=== PATIENT | male | born 1975 | race Caucasian/White ===

== ENCOUNTER → 2017-07-25 | Day surgery (SDC) | payer BC ==
[~2017-07-25] MED LIST: BUPIVACAINE HCL 0.5 % INJ/PF 30 ML SDV ONE; METHYLPREDNISOLONE ACETATE INJ 40 MG/1 ML ML ONE
--- NOTE | 2017-07-26 08:47 | RADIOLOGY REPORT (SQ) ---
EXAM DESCRIPTION: INJECT/ASPIR HIP/SHLDR/KNEE; FLUORO/NEEDLE PLACEMENT COMPLETED DATE/TIME: 07/25/2017 3:20 pm REASON FOR STUDY: PAIN IN RIGHT HIP (M25.551) M25.551 PAIN IN RIGHT HIP COMPARISON: None. FLUOROSCOPY TIME: 9 seconds 2 digital radiographic images saved to PACS. LIMITATIONS: None. PROCEDURE: SITE OF INJECTION: Right hip joint LOCALIZING CONTRAST TYPE AND DOSE: 1 mL Isovue 300 was injected to confirm intra-articular needle kimberlee cement MEDICATION TYPE AND DOSE: 80 mg of Depo-Medrol, 5 mL of 0.5% bupivacaine Using local anesthesia and sterile technique with fluoroscopic guidance, a 22 gauge spinal needle was advanced into the joint. Iodinated contrast was injected to verify intraarticular placement. This w as followed by therapeutic injection of the indicated medications. The needle was removed. There we re no immediate complications. Preprocedure pain level: 5/10. Postprocedure pain level: 0/10. IMPRESSION: THERAPEUTIC INTRA-ARTICULAR INJECTION OF THE RIGHT HIP JOINT ABOVE. COMMENT: Patient medication list reviewed: Yes- Quality ID# [id number]:Eligible professional attests to doc umenting in the medical record they obtained, updated, or reviewed the patient's current medications. . Quality ID [id number]: Final reports for procedures using fluoroscopy that document radiation exposure silvino aide, or exposure time and number of fluorographic images (if radiation exposure indices are not avail able) TECHNICAL DOCUMENTATION: JOB ID: [id number] [employer]- All Rights Reserved Reading location - IP/workstation name: [email or web address]
== END ==
LOC: RAD 14:19
PROVIDERS: ATTEND Orthopaedic Surgery
PROC: 3E0U33Z Introduction of Anti-inflammatory into Joints, Percutaneous Approach (ICD-10-PCS; principal; 2017-07-25)
DX: M25.551 Pain in right hip (principal)
CPT/HCPCS: 20610; 77002; J3490; J1020

== ENCOUNTER 2019-07-05 17:44 | Emergency (ER) | payer OTHER, BC ==
--- NOTE | 2019-07-05 18:26 | ER Document Report ---
ED Medical Screen (RME) - General Chief Complaint: Chest Pain Stated Complaint: CHEST PAIN Time Seen by Provider: 07/05/19 18:16 Primary Care Provider: ADAMARIS BRANTLEY MD [Primary Care Provider] - Follow up as needed Mode of Arrival: Ambulatory Information source: Patient Notes: 44-year-old male presents emergency department with complaints of midsternal to the left side chest pain with lightheadedness. Reports he felt lightheaded yesterday. Reports he felt off today with chest pain midsternal. He reports he took the trash up the hill and became short of breath. He normally does not become short of breath. Complains of feeling diaphoretic. Patient reports recent shoulder injury. He is taking ibuprofen and gabapentin for that pain. Patient is very healthy works out. [facility]. Reports his father of diabetes and heart attack in his 40s. I have greeted and performed a rapid initial assessment of this patient. A comprehensive ED assessment and evaluation of the patient, analysis of test results and completion of the medical decision making process will be conducted by additional ED providers. TRAVEL OUTSIDE OF THE [place] IN LAST 30 DAYS: No - Related Data Allergies/Adverse Reactions: erythromycin base Allergy (Verified 07/05/19 18:24) Physical Exam - Vital signs Vitals: Temp Pulse Resp BP Pulse Ox 98.0 F 70 18 152/93 H 94 07/05/19 17:56 07/05/19 17:56 07/05/19 17:56 07/05/19 17:56 07/05/19 17:56 Course - Vital Signs Vital signs: Temp Pulse Resp BP Pulse Ox 98.0 F 70 18 152/93 H 94 07/05/19 17:56 07/05/19 17:56 07/05/19 17:56 07/05/19 17:56 07/05/19 17:56 Doctor's Discharge - Discharge Referrals: ADAMARIS BRANTLEY MD [Primary Care Provider] - Follow up as needed
[2019-07-05] MEDS ORDERED: ASPIRIN 81 MG TABLET, CHEWABLE PO ONE (18:55)
--- NOTE | 2019-07-05 19:17 | RADIOLOGY REPORT (SQ) ---
EXAM DESCRIPTION: CHEST 2 VIEWS COMPLETED DATE/TIME: 07/05/2019 7:04 pm REASON FOR STUDY: chest pain COMPARISON: None. NUMBER OF VIEWS: Two view. TECHNIQUE: Frontal and lateral radiographic views of the chest acquired. LIMITATIONS: None. FINDINGS: LUNGS AND PLEURA: Peribronchial cuffing and interstitial changes. No consolidation, effus ion, or pneumothorax. MEDIASTINUM AND HILAR STRUCTURES: No masses. No contour abnormalities. HEART AND VASCULAR STRUCTURES: Heart normal in size and contour. No evidence for failure. BONES: No acute findings. HARDWARE: None in the chest. OTHER: No other significant finding. IMPRESSION: REACTIVE AIRWAY DISEASE VERSUS VIRAL SYNDROME. NO CONSOLIDATION. TECHNICAL DOCUMENTATION: JOB ID: [id number] [place]-[id number] 2010 [employer])- All Rights Reserved Reading location - IP/workstation name: [email or web address]
[2019-07-05 19:44] LABS: ABSOLUTE EOSINOPHILS # (AUTO) 0.1 10^3/uL (0.0-0.6); ABSOLUTE LYMPHOCYTES (AUTO) 1.6 10^3/uL (0.5-4.7); ABSOLUTE MONOCYTES (AUTO) 0.5 10^3/uL (0.1-1.4); ABSOLUTE NEUT (AUTO) 2.5 10^3/uL (1.7-8.2); BASOPHILS % (AUTO) 0.4 % (0-2); EOSINOPHILS % (AUTO) 1.5 % (0-6); HEMATOCRIT 40.3 % (37.9-51.0); HEMOGLOBIN 14.4 g/dL (13.5-17.0); MEAN CORPUSCULAR HEMOGLOBIN 30.7 pg (27.0-33.4); MEAN CORPUSCULAR HGB CONC 35.7 g/dL (32.0-36.0); MEAN CORPUSCULAR VOLUME 86 fl (80-97); MONOCYTES % (AUTO) 10.3 % (3-13); PLATELET COUNT 151 10^3/uL (150-450); RED BLOOD COUNT 4.67 10^6/uL (4.35-5.55); RED CELL DISTRIBUTION WIDTH 12.8 % (11.5-14.0); SEGMENTED NEUTROPHILS % (AUTO) 53.8 % (42-78); TOTAL CELLS COUNTED % (AUTO) 100 %; WHITE BLOOD COUNT 4.6 10^3/uL (4.0-10.5)
[2019-07-05 19:51] LABS: APPEARANCE,URINE CLEAR; BILIRUBIN,URINE NEGATIVE (NEGATIVE); COLOR,URINE YELLOW; GLUCOSE, URINE NEGATIVE (NEGATIVE); KETONES,URINE NEGATIVE (NEGATIVE); LEUKOCYTE ESTERASE,URINE NEGATIVE (NEGATIVE); NITRITE,URINE NEGATIVE (NEGATIVE); PROTEIN,URINE NEGATIVE (NEGATIVE); URINE SPECIFIC GRAVITY 1.011
[2019-07-05 20:22] LABS: ALBUMIN 4.4 g/dL (3.5-5.0); ALKALINE PHOSPHATASE 56 U/L (38-126); ANION GAP 10 (5-19); ASPARTATE AMINO TRANSFERASE 43 U/L (17-59); BILIRUBIN,DIRECT 0.3 mg/dL (0.0-0.4); BILIRUBIN,TOTAL 0.8 mg/dL (0.2-1.3); BLOOD UREA NITROGEN 19 mg/dL (7-20); CALCIUM 9.6 mg/dL (8.4-10.2); CARBON DIOXIDE 28 mmol/L (22-30); CHLORIDE 102 mmol/L (98-107); CREATINE KINASE 255 U/L (55-170); GLUCOSE 107 mg/dL (75-110); POTASSIUM 3.8 mmol/L (3.6-5.0); TOTAL PROTEIN 7.7 g/dL (6.3-8.2)
--- NOTE | 2019-07-05 21:17 | ER Document Report ---
Entered by EZIO FLORES SCRIBE 07/05/192046 Acting as scribe for:RENETTA MEYER IV, MD ED General - General Chief Complaint: Chest Pain Stated Complaint: CHEST PAIN Time Seen by Provider: 07/05/19 18:16 Primary Care Provider: ADAMARIS BRANTLEY MD [ACTIVE STAFF] - Follow up as needed Mode of Arrival: Ambulatory Information source: Patient Notes: This 44 year old male patient presents to the ED today with complaints of left- sided chest pain that started yesterday. Patient states that he felt short of breath with increased coughing while he was walking up a hill to take out the trash. Patient states that after returning to his home, he began to prepare his lunch when he felt lightheaded and dizzy, so he decided to take a nap. Patient states that it felt like his original chest pain "slowly expanded" and that he became diaphoretic. Patient also reports nausea, polydipsia, concentrated urine, and headache, but denies vomiting. Patient reports that he has a recent left shoulder injury and that he is taking Gabapentin and Robaxin for it. Patient notes that he did receive a flu shot and that he had sinus issues in which he was prescribed [facility]1 [facility]. TRAVEL OUTSIDE OF THE [place] IN LAST 30 DAYS: No - Related Data Allergies/Adverse Reactions: erythromycin base Allergy (Verified 07/05/19 18:24) Home Medications: Methocarbimol. Calcium. Gabapentin. Meloxicam. Trazodone. Albuterol. Flonase Past Medical History - General Information source: Patient - Social History Smoking Status: Never Smoker Cigarette use (# per day): No Chew tobacco use (# tins/day): No Smoking Education Provided: No Frequency of alcohol use: None Drug Abuse: None Family History: Reviewed & Not Pertinent, CAD - Father age 40 d/t [place], DM - Father Patient has suicidal ideation: No Patient has homicidal ideation: No Review of Systems - Review of Systems Constitutional: See HPI, Diaphoresis EENT: See HPI, Other - Polydipsia Cardiovascular: See HPI, Chest pain, Dizziness, Lightheaded Respiratory: See HPI, Cough, Short of breath Gastrointestinal: See HPI, Nausea. denies: Vomiting Genitourinary: See HPI, Other - Concentrated urine Male Genitourinary: No symptoms reported Musculoskeletal: No symptoms reported Skin: No symptoms reported Hematologic/Lymphatic: No symptoms reported Neurological/Psychological: See HPI, Headaches -: Yes All other systems reviewed and negative Physical Exam - Vital signs Vitals: Temp Pulse Resp BP Pulse Ox 98.0 F 70 18 152/93 H 94 07/05/19 17:56 07/05/19 17:56 07/05/19 17:56 07/05/19 17:56 07/05/19 17:56 - General General appearance: Alert - HEENT Head: Normocephalic, Atraumatic Eyes: Normal Pupils: PERRL - Respiratory Respiratory status: No respiratory distress Chest status: Nontender Breath sounds: Normal Chest palpation: Normal - Cardiovascular Rhythm: Regular Heart sounds: Normal auscultation Murmur: No Friction rub: No Gallop: None auscultated - Abdominal Inspection: Normal Distension: No distension Bowel sounds: Normal Tenderness: Nontender - Abdomen soft Organomegaly: No organomegaly - Back Back: Normal, Nontender - Extremities General upper extremity: Normal inspection General lower extremity: Normal inspection - Neurological Neuro grossly intact: Yes - Psychological Associated symptoms: Normal affect, Normal mood - Skin Skin Temperature: Warm Skin Moisture: Dry Skin Color: Normal Course - Re-evaluation Re-evalutation: 07/05/19 21:17 Differential diagnosis: Pneumonia, influenza, parainfluenza virus, reactive airway disease, bronchitis. Possibility of ACS and aortic dissection as well as PE also considered. However given the patient's lack of risk factors for coronary artery disease, normal chest x-ray silhouette and lack of back pain or other symptoms to suggest acute dissection and a heart rate that is not tachycardic as well as O2 saturations in the 90s these etiologies seem much less likely. HEART Score: History see HPI ECG nonspecific t wave change Age <46 Risk Factors 1 Troponin 0 Total: 2 If HEART score is = 3 AND both tronponin measurments are normal, the 30 day risk of a major adverse cardiac event (all-cause mortality, myocardia infarction or need for coronary revscularization) is < 1% (Sensitivity 100%, NPV 100%). Chest pain in a patient without evidence of cardiac or other serious etiology on workup today. I discussed with patient that, based on their age, risk factors and emergency department testing today, the likelihood that their symptoms are related to a heart attack is very low (estimated risk of heart attack or over the next 30 days of less than 1%). The patient demonstrates decision making capacity and has verbalized an understanding of these risks to me. Based on this, the patient has chosen to follow-up as an outpatient. Usual chest pain return precautions reviewed. The patient states understanding and agreement with this plan. 07/05/19 21:22 07/05/19 22:20 07/05/19 23:12 Results of ED MSE discussed with patient and patient's . All questions were answered prior to discharge. Emergency signs and symptoms, reasons to return to the emergency department discussed with patient and patient's . - Vital Signs Vital signs: Temp Pulse Resp BP Pulse Ox 97.8 F 70 18 128/68 H 93 07/05/19 22:46 07/05/19 17:56 07/05/19 22:00 07/05/19 22:46 07/05/19 22:00 - Laboratory Result Diagrams: 07/05/19 19:00 07/05/19 19:00 Laboratory results interpreted by me: 07/05/19 07/05/19 19:00 19:00 ALT 56 H Creatine Kinase 255 H Urine Urobilinogen 4.0 H - Diagnostic Test Radiology reviewed: Reports reviewed - EKG Interpretation by Me Additional EKG results interpreted by me: 07/05/19 21:20 EKG obtained on 07/05/2019 at 1749 hrs. was interpreted by this MD. Findings: Sinus rhythm, rate 72, normal axis, P waves proceed QRS complexes, QRS complexes appear narrow, there are no obvious patterns of ST segment elevation or depression to suggest acute myocardial ischemia or infarction. Impression: Sinus rhythm with nonspecific ST segments. 07/05/19 22:31 Repeat EKG obtained on 07/05/2019 at 2224 hrs. was interpreted by this MD. Findings sinus rhythm, rate 57, normal axis, P waves proceed QRS complexes, QRS complexes appear narrow, there are no obvious visible patterns of ST elevation or depression to suggest acute myocardial ischemia or infarction. This EKG appears unchanged from the initial EKG obtained at 1749 hrs. Impression sinus bradycardia with nonspecific ST segments. Discharge - Discharge Clinical Impression: Acute nonspecific chest pain with low risk of coronary artery disease, Acute dyspnea Condition: Good Disposition: HOME, SELF-CARE Instructions: Chest Pain of Unclear Cause ([facility]) Additional Instructions: Return to the Emergency Department without delay if any worse. HOME CARE INSTRUCTIONS & INFORMATION: Thank you for choosing us for your medical needs. We hope you're satisfied with the care you received. After you leave, you must properly care for your problem and, at the same time, observe its progress. Any condition can change. Some illnesses can change rapidly over hours or days. If your condition worsens, return to the Emergency Department or see your physician promptly. ABOUT YOUR X-RAYS AND EKG'S: If you had an EKG or X-rays taken, they have been read by the Emergency Physician. The X-rays and EKG's will also be read by a Radiologist or Marine Propulsion Technician within 24 hours. If discrepancies are noted, you will be notified by telephone. Please be certain the ED has a correct telephone number & address where you can be reached. Also, realize that some fractures or abnormalities do not show up on initial X-rays. If your symptoms continue, see your physician. ABOUT YOUR LABORATORY TEST: If you had laboratory tests, the results have been reviewed by the Emergency Physician. Some test results (for example cultures) may not be available for several days. You will be contacted if any test result shows you need additional treatment. Please be certain the ED has a correct telephone number and address where you can be reached. ABOUT YOUR MEDICATIONS: You will receive instructions on how to take your medicine on the prescription label you receive. Additional information may be provided by the Pharmacy. If you have questions afterwards, call the ED for clarification or further instructions. Some prescribed medications may cause drowsiness. Do not perform tasks such as driving a car or operating machinery without consulting your Pharmacist. If you feel you need a refill of pain medication, your condition will need re-evaluation. Please do not call for a refill of any medication. ABOUT YOUR SIGNATURE: Signature of this document acknowledges to followin. Understanding that you received emergency treatment and that you may be released before al medical problems are known or treated. Please be certain the ED has a correct phone number & address where you can be reached. 2. Acknowledgement that you will arrange for follow-up care as recommended. 3. Authorization for the Emergency Physician to provide information to your follow-up Physician in order to maximize your care. AT ANY TIME, IF YOUR SYMPTOMS CHANGE SIGNIFICANTLY OR WORSEN OR YOU DEVELOP NEW SYMPTOMS, RETURN TO THE EMERGENCY DEPARTMENT IMMEDIATELY FOR RE-EVALUATION. OUR GOAL IS TO PROVIDE EXCELLENT MEDICAL CARE! WE HOPE THAT WE HAVE MET YOUR EXPECTATIONS DURING YOUR EMERGENCY DEPARTMENT VISIT AND THAT YOU FEEL YOU HAVE RECEIVED EXCELLENT CARE! Dyspnea, Nonspecific You were evaluated for shortness of breath, or dyspnea. Dyspnea has many causes, and some are more serious than others. Sometimes it's impossible to diagnose the cause of dyspnea with the tests that are available on an emergency basis. Based on our evaluation today, you do not need hospitalization now. We found no evidence of pneumonia, collapsed lung, blood clots in the lung, tumors, or heart failure. Causes of non-specific dyspnea can include asthma or bronchospasm, hyperventilation, emotional distress, heart disease, emphysema, fibrosis of the lung, and stiffness of the chest wall. In healthy individuals with a single episode, it's sometimes reasonable to do nothing but wait to see if the problem occurs again. Additional tests used to evaluate dyspnea can include cardiac stress testing, echocardiography, pulmonary function testing, CAT scan of the chest, bronchoscopy or pulmonary biopsy. Return if shortness of breath persists or worsens, or if you develop chest pain, fever, cough, confusion, or fainting. Reactive Airway Disease This means that your bronchial tubes constrict (narrow) or secrete extra mucous as a reaction to something that irritates them. The airway's reaction can cause shortness of breath, wheezing, or coughing. With reactive airway disease, your lungs can react to respiratory infections, allergic reactions, or inhaled dust, smoke, chemicals, or even cold air. Asthma is one type of reactive airway disease. Emergency treatment of bronchospasm may include adrenaline shots or bronchodilator aerosol. If we used these medicines to treat you, you may feel lightheaded and have a rapid pulse for an hour or two. Rest and get plenty of fluids. At home, we'll treat you with a bronchodilator inhaler. Antibiotics and corticosteroids may be required for some patients. Until you recover, avoid chemical fumes, dusts, pollens, and exercising in very cold or dry air. If you smoke, stop now!! If you develop a fever, increased wheezing, chest pain, or severe shortness of breath, you should contact your doctor immediately. Viral Syndrome Viruses not only cause "colds," but can cause many different symptoms including generalized aching, fever, headache, cough, diarrhea, nausea, vomiting, and fatigue. The treatment, for the most part, is simply relief of symptoms. This means that antibiotics are usually not given. Rest, fluids, pain medications and, occasionally, medication for the specific symptoms that are most bothersome will be prescribed. Use good handwashing to avoid passing the virus to others. Shared toys should be cleaned with disinfectant. Clean the toilets, sinks, and counter surfaces in bathrooms. Launder clothing in hot water. Contact the physician if you develop any new or unusual symptoms such as severe headache, stiff neck, high fever, chest pain, productive cough, or shortness of breath. You should be rechecked if you don't see marked improvement within seven to 10 days. Referrals: ADAMARIS BRANTLEY MD [ACTIVE STAFF] - Follow up as needed I personally performed the services described in the documentation, reviewed and edited the documentation which was dictated to the scribe in my presence, and it accurately records my words and actions.
--- NOTE | 2019-07-05 21:29 | EKG REPORT ---
SEVERITY:- ABNORMAL ECG - SINUS RHYTHM BORDERLINE INFERIOR Q WAVES NONSPECIFIC T ABNORMALITIES, INFERIOR LEADS : Confirmed by: Jeff Quiroz MD 05-Jul-2019 21:28:47
[2019-07-05 21:57] LABS: A TYPE INFLUENZA AG NEGATIVE (NEGATIVE); B INFLUENZA AG NEGATIVE (NEGATIVE)
[2019-07-05 22:47] VITALS: BP 128/68
--- NOTE | 2019-07-06 06:23 | EKG REPORT ---
SEVERITY:- BORDERLINE ECG - SINUS RHYTHM BORDERLINE INFERIOR Q WAVES : Confirmed by: Jeff Quiroz MD 06-Jul-2019 06:22:41
== END 2019-07-05 22:46 | disposition home or self-care (01) ==
LOC: ER 17:44
DX: R07.9 Chest pain, unspecified (principal); R06.02 Shortness of breath; R05 Cough; R42 Dizziness and giddiness; R61 Generalized hyperhidrosis; R11.0 Nausea; R51 Headache; R63.1 Polydipsia; S49.92XA Unspecified injury of left shoulder and upper arm, initial encounter; X58.XXXA Exposure to other specified factors, initial encounter; Z79.899 Other long term (current) drug therapy; Z79.1 Long term (current) use of non-steroidal anti-inflammatories (NSAID); Z88.1 Allergy status to other antibiotic agents; Z82.49 Family history of ischemic heart disease and other diseases of the circulatory system
CPT/HCPCS: 36415; 71046; 80053; 81001; 82550; 84484; 85025; 87804; 93005; 93010; 99285

== ENCOUNTER 2020-01-26 13:15 | Emergency (ER) | payer OTHER, BC ==
[2020-01-26] MEDS ORDERED: KETOROLAC TROMETHAMINE 60 MG/2 ML SDV IM ONE (14:01)
[2020-01-26] MEDS ORDERED: ONDANSETRON 4 MG TAB.RAPDIS PO ONE (14:01)
--- NOTE | 2020-01-26 14:04 | ER Document Report ---
ED Medical Screen (RME) - General Chief Complaint: Flank Pain Stated Complaint: FLANK PAIN Time Seen by Provider: 01/26/20 13:53 Primary Care Provider: ORESTES BENITES MD [Primary Care Provider] - Follow up as needed TRAVEL OUTSIDE OF THE [place] IN LAST 30 DAYS: No - HPI Notes: 01/26/20 14:02 44-year-old male to the emergency department with complaints of right flank pain that began this morning with associated dysuria. He states he woke up this morning had a little bit of discomfort with urinating and then went back to bed. He states he got up again had again the dysuria and a little bit of flank pain. He states that the pain radiates also down into his leg and slightly into his scrotum. He states he went to urgent care he told him that his urinalysis looked fine put him on some Pyridium. He is and he asked his she had had any urinary tract infections lately and she said no. Denies any concern for STD. He admits to some slight nausea but denies any vomiting. He states he is continued not to feel well so 1 of his coworkers suggested he come to the emergency department for evaluation for kidney stone. He is never had a kidney stone in the past. He denies any other complaints. My RME - Related Data Allergies/Adverse Reactions: erythromycin base Allergy (Verified 01/26/20 13:53) Physical Exam - Vital signs Vitals: Temp Pulse Resp BP Pulse Ox 97.5 F 67 18 146/88 H 95 01/26/20 13:23 01/26/20 13:23 01/26/20 13:23 01/26/20 13:23 01/26/20 13:23 Course - Vital Signs Vital signs: Temp Pulse Resp BP Pulse Ox 97.5 F 67 18 146/88 H 95 01/26/20 13:23 01/26/20 13:23 01/26/20 13:23 01/26/20 13:23 01/26/20 13:23 Doctor's Discharge - Discharge Referrals: ORESTES BENITES MD [Primary Care Provider] - Follow up as needed
[2020-01-26 14:52] LABS: ABSOLUTE LYMPHOCYTES (AUTO) 1.4 10^3/uL (0.5-4.7); ABSOLUTE MONOCYTES (AUTO) 0.3 10^3/uL (0.1-1.4); ABSOLUTE NEUT (AUTO) 3.3 10^3/uL (1.7-8.2); BASOPHILS % (AUTO) 0.4 % (0-2); EOSINOPHILS % (AUTO) 0.9 % (0-6); HEMATOCRIT 42.7 % (37.9-51.0); HEMOGLOBIN 14.9 g/dL (13.5-17.0); LYMPHOCYTES % (AUTO) 28.1 % (13-45); MEAN CORPUSCULAR HGB CONC 34.8 g/dL (32.0-36.0); MEAN CORPUSCULAR VOLUME 86 fl (80-97); MONOCYTES % (AUTO) 6.4 % (3-13); PLATELET COUNT 149 10^3/uL (150-450); RED BLOOD COUNT 4.96 10^6/uL (4.35-5.55); RED CELL DISTRIBUTION WIDTH 13.3 % (11.5-14.0); SEGMENTED NEUTROPHILS % (AUTO) 64.2 % (42-78); TOTAL CELLS COUNTED % (AUTO) 100 %; WHITE BLOOD COUNT 5.1 10^3/uL (4.0-10.5)
--- NOTE | 2020-01-26 14:58 | RADIOLOGY REPORT (SQ) ---
EXAM DESCRIPTION: CT ABD/PELVIS NO ORAL OR IV IMAGES COMPLETED DATE/TIME: 01/26/2020 2:43 pm REASON FOR STUDY: flank pain, dysuria, eval kidney stone COMPARISON: None. TECHNIQUE: CT scan of the abdomen and pelvis performed without intravenous or oral contrast. Images reviewed with lung, soft tissue, and bone windows. Reconstructed coronal and sagittal MPR images revi ewed. All images stored on PACS. All CT scanners at this facility use dose modulation, iterative reconstruction, and/or weight based d osing when appropriate to reduce radiation dose to as low as reasonably achievable (ALARA). [facility]: Dose Right [facility]: CareDose [facility]: Dose Right [facility]: Teradose 4D [facility]: [employer] RADIATION DOSE: mGy. LIMITATIONS: None. FINDINGS: LOWER CHEST: No significant findings. No nodules or infiltrates. NON-CONTRASTED LIVER, SPLEEN, ADRENALS: Evaluation limited by lack of IV contrast. No identified sign ificant masses. PANCREAS: No masses. No peripancreatic inflammatory changes. GALLBLADDER: Decompressed. No identified stones by CT criteria. No inflammatory changes to suggest c holecystitis. RIGHT KIDNEY AND URETER: No suspicious masses. Assessment limited by lack of IV contrast. No signif icant calcifications. No hydronephrosis or hydroureter. LEFT KIDNEY AND URETER: No suspicious masses. Assessment limited by lack of IV contrast. No signifi cant calcifications. No hydronephrosis or hydroureter. AORTA AND RETROPERITONEUM: No aneurysm. No retroperitoneal masses or adenopathy. BOWEL AND PERITONEAL CAVITY: No obvious masses or inflammatory changes. No free fluid. APPENDIX: Normal. PELVIS, BLADDER, AND ABDOMINAL WALL:No abnormal masses. No free fluid. Bladder normal. BONES: Degenerative changes are seen of the hips and spine. Incidental note is made of T12 and sacra l enostosis ease. There is incomplete sacral is a lyons of the L5 element with a right-sided Bertolot ti segment demonstrating sclerotic margins suggesting pseudoarthrosis. OTHER: No other significant finding. IMPRESSION: No evidence of urolithiasis or obstructive uropathy. Incidental finding of transitional lumbosacral anatomy with a right-sided Bertolotti segment may be symptomatic and related to patient' s presenting symptoms. COMMENT: Quality ID # [id number]: Final reports with documentation of one or more dose reduction techniques (e.g., Automated exposure control, adjustment of the mA and/or kV according to patient size, use of iterative reconstruction technique) TECHNICAL DOCUMENTATION: JOB ID: [id number] 2010 [employer]- All Rights Reserved Reading location - IP/workstation name: [email or web address]
[2020-01-26 15:08] LABS: ALBUMIN 4.7 g/dL (3.5-5.0); ALKALINE PHOSPHATASE 46 U/L (38-126); ANION GAP 9 (5-19); ASPARTATE AMINO TRANSFERASE 43 U/L (17-59); BILIRUBIN,DIRECT 0.2 mg/dL (0.0-0.4); BILIRUBIN,TOTAL 1.3 mg/dL (0.2-1.3); BLOOD UREA NITROGEN 20 mg/dL (7-20); CALCIUM 10.1 mg/dL (8.4-10.2); CARBON DIOXIDE 29 mmol/L (22-30); CHLORIDE 101 mmol/L (98-107); GLUCOSE 95 mg/dL (75-110); POTASSIUM 4.4 mmol/L (3.6-5.0); TOTAL PROTEIN 7.6 g/dL (6.3-8.2)
[2020-01-26 16:07] LABS: APPEARANCE,URINE CLEAR; BILIRUBIN,URINE NEGATIVE (NEGATIVE); COLOR,URINE AMBER; GLUCOSE, URINE NEGATIVE (NEGATIVE); KETONES,URINE NEGATIVE (NEGATIVE); LEUKOCYTE ESTERASE,URINE NEGATIVE (NEGATIVE); NITRITE,URINE POSITIVE (NEGATIVE); PROTEIN,URINE NEGATIVE (NEGATIVE); URINE SPECIFIC GRAVITY 1.011
[2020-01-26 17:49] LABS: CHLAM PCR NOT DETECTED (NOT DETECT)
--- NOTE | 2020-01-26 18:33 | ER Document Report ---
ED General - General Chief Complaint: Flank Pain Stated Complaint: FLANK PAIN Time Seen by Provider: 01/26/20 13:53 Primary Care Provider: ORESTES BENITES MD [NO LOCAL MD] - Follow up in 3-5 days TRAVEL OUTSIDE OF THE [place] IN LAST 30 DAYS: No - HPI Notes: 44-year-old male to the emergency department with complaints of dysuria that began this morning. He states he awoke in the middle the night and went to urinate and felt some discomfort. He states that he then went back to bed but then got up several times with dysuria. He states that the pain also started to radiate into his right flank and into his right testicle as well as down the leg. He states he went to urgent care thinking that he might have a urinary tract infection but they told him his results were negative. He states he went to work and continue to still feel poorly. So after speaking with some [facility] gues they urged him to come to the emergency department to evaluate for possible kidney stone. He denies any blood in his urine. He denies any fevers or chills. Is not had any vomiting. Admits to some slight nausea. He states that he is and he asked his she has had any urinary tract symptoms and she would said no. He is never had anything like this before. - Related Data Allergies/Adverse Reactions: erythromycin base Allergy (Verified 01/26/20 13:53) Past Medical History - General Information source: Patient - Social History Smoking Status: Never Smoker Chew tobacco use (# tins/day): No Frequency of alcohol use: Occasional Drug Abuse: None Family History: Reviewed & Not Pertinent, CAD - Father age 40 d/t [place], DM - Father Patient has homicidal ideation: No Review of Systems - Review of Systems Constitutional: denies: Chills, Fever EENT: No symptoms reported Cardiovascular: denies: Chest pain, Palpitations, Dyspnea, Syncope Respiratory: denies: Cough, Short of breath Gastrointestinal: Nausea. denies: Abdominal pain, Diarrhea, Vomiting Genitourinary: Burning, Dysuria, Frequency, Flank pain Male Genitourinary: Testicular pain Musculoskeletal: No symptoms reported Skin: No symptoms reported Hematologic/Lymphatic: No symptoms reported Neurological/Psychological: No symptoms reported -: Yes All other systems reviewed and negative Physical Exam - Vital signs Vitals: Temp Pulse Resp BP Pulse Ox 97.5 F 67 18 146/88 H 95 01/26/20 13:23 01/26/20 13:23 01/26/20 13:23 01/26/20 13:23 01/26/20 13:23 Interpretation: Normal - General General appearance: Appears well, Alert In distress: None - HEENT Head: Normocephalic, Atraumatic Eyes: Normal Pupils: PERRL - Respiratory Respiratory status: No respiratory distress Chest status: Nontender Breath sounds: Normal Chest palpation: Normal - Cardiovascular Rhythm: Regular Heart sounds: Normal auscultation Murmur: No - Abdominal Inspection: Normal Distension: No distension Bowel sounds: Normal Tenderness: No: Tender, McBurney's point, Diggs's sign, Guarding, Rebound Organomegaly: No organomegaly Notes: There is some mild right flank tenderness not particularly in the CVA region without rebound or guarding. Negative McBurney's point. - Back Back: Normal, Nontender - Extremities General upper extremity: Normal inspection, Nontender, Normal color, Normal ROM, Normal temperature General lower extremity: Normal inspection, Nontender, Normal color, Normal ROM, Normal temperature, Normal weight bearing. No: Kaushik's sign - Neurological Neuro grossly intact: Yes Cognition: Normal Orientation: AAOx4 Fillmore Coma Scale Eye Opening: Spontaneous Bridget Coma Scale Verbal: Oriented Bridget Coma Scale Motor: Obeys Commands Fillmore Coma Scale Total: 15 Speech: Normal Motor strength normal: LUE, RUE, LLE, RLE Sensory: Normal - Psychological Associated symptoms: Normal affect, Normal mood - Skin Skin Temperature: Warm Skin Moisture: Dry Skin Color: Normal Course - Re-evaluation Re-evalutation: Impression: UTI with dysuria. Patient is positive for nitrates in urine which makes me concerned for urinary tract infection. CT with no hydronephrosis, kidney stone. Testicular ultrasound with hydrocele but no other findings. Updated patient about his findings and will start on antibiotics. He is to follow-up with his primary care in 1 week and encouraged to return if any worsening symptoms. - Vital Signs Vital signs: Temp Pulse Resp BP Pulse Ox 97.8 F 74 18 134/76 H 99 01/26/20 19:12 01/26/20 19:12 01/26/20 19:12 01/26/20 19:12 01/26/20 19:12 - Laboratory Result Diagrams: 01/26/20 14:28 01/26/20 14:28 Laboratory results interpreted by me: 01/26/20 01/26/20 01/26/20 13:17 14:28 14:28 Plt Count 149 L ALT 65 H Urine Nitrite POSITIVE H Urine Urobilinogen 4.0 H - Diagnostic Test Radiology reviewed: Image reviewed, Reports reviewed Discharge - Discharge Clinical Impression: Flank pain, Dysuria UTI (urinary tract infection) Qualifiers: Urinary tract infection type: acute cystitis Hematuria presence: without hematuria Qualified Code(s): N30.00 - Acute cystitis without hematuria Hydrocele Qualifiers: Hydrocele type: unspecified Qualified Code(s): N43.3 - Hydrocele, unspecified Condition: Stable Disposition: HOME, SELF-CARE Instructions: Urinary Tract Infection ([facility]) Additional Instructions: PUSH FLUIDS. YOU HAD A HYDROCELE ON ULTRASOUND WHICH IS A CYST AND BENIGN. FOLLOW UP WITH PRIMARY CARE. RETURN IF WORSE. COMPLETE ANTIBIOTICS. Prescriptions: Ketorolac Tromethamine [Toradol 10 mg Tablet] 10 mg PO Q8HP PRN #24 tablet PRN Reason: Ciprofloxacin HCl [Cipro 500 mg Tablet] 500 mg PO BID #14 tablet Referrals: ORESTES BENITES MD [NO LOCAL MD] - Follow up in 3-5 days
--- NOTE | 2020-01-26 18:46 | RADIOLOGY REPORT (SQ) ---
EXAM DESCRIPTION: U/S SCROTUM W/DOPPLER IMAGES COMPLETED DATE/TIME: 01/26/2020 6:30 pm REASON FOR STUDY: testicular pain COMPARISON: None. TECHNIQUE: Static and realtime heart scale imaging of the scrotum and testes. Selected color Doppler and spectral images recorded to document blood flow. LIMITATIONS: None. FINDINGS: RIGHT: TESTICLE: Normal size. Normal echotexture. Normal blood flow. No mass. EPIDIDYMIS: Normal. HYDROCELE OR VARICOCELE: No. HERNIA OR EXTRA-TESTICULAR MASS: No. OTHER: No other significant finding. LEFT: TESTICLE: Normal size. Normal echotexture. Normal blood flow. No mass. EPIDIDYMIS: Normal. HYDROCELE OR VARICOCELE: Trace hydrocele. HERNIA OR EXTRA-TESTICULAR MASS: No. OTHER: No other significant finding. IMPRESSION: Trace left-sided hydrocele. Otherwise normal examination. TECHNICAL DOCUMENTATION: JOB ID: [id number] [employer]- All Rights Reserved Reading location - IP/workstation name: [email or web address]
[2020-01-26] MEDS ORDERED: CIPROFLOXACIN HCL 500 MG TABLET PO ONE (18:59)
[2020-01-26 19:14] VITALS: BP 134/76
== END 2020-01-26 19:12 | disposition home or self-care (01) ==
LOC: ER 13:15
DX: N30.00 Acute cystitis without hematuria (principal); N43.3 Hydrocele, unspecified; R11.0 Nausea; N50.811 Right testicular pain; Z88.1 Allergy status to other antibiotic agents
CPT/HCPCS: 99285; 96372; 36415; 85025; 80053; 81001; 87491; 87591; 76870; 93976; 74176; J1885; S0119